=== PATIENT | male | born 1950 | race Caucasian/White ===

== ENCOUNTER → 2016-05-16 | Outpatient (CLI) | payer OTHER, MEDICARE | LOC: BHFA 15:00 | PROVIDERS: ATTEND Internal Medicine Cardiovascular Disease | DX: I48.91 Unspecified atrial fibrillation (principal); I25.10 Atherosclerotic heart disease of native coronary artery without angina pectoris ==

== ENCOUNTER 2017-04-09 13:33 | Emergency (ER) | payer OTHER, MEDICARE ==
[2017-04-09 14:02] VITALS: RESP 18; TEMP 98.2
--- NOTE | 2017-04-09 15:47 | EDPHY ---
H & P Time Seen by Provider: 04/09/17 15:46 HPI/ROS: Chief complaint. Toe infection HPI. 66-year-old male presents emergency department with toe infection. He has had a callus for several years on the right 3rd toe. 3 days ago he developed a blister. Today it was increased red and swollen with some purulent drainage. He had similar symptoms to this toe about 6 months ago after chemotherapy was treated by add trap puller got better. He changed chemotherapy recently then 3 days ago developed symptoms. He was seen at urgent care and referred to our emergency department. He had an care scheduled but they can't see him until Saturday. He is otherwise not on any antibiotics. His last chemotherapy was 2 weeks ago for metastatic prostate disease. No fever. Patient has decreased sensation to the toes on both feet ROS Constitutional. no fever/chills, no weakness Eyes. no problems with vision ENT. no sore throat, no nasal drainage Cardiovascular. no chest pain Respiratory. no shortness of breath, no cough Abdominal. no abdominal pain, no nausea/vomiting, no diarrhea . no problems urinating MS. no calf pain/swelling, no neck/back pain, no joint pain Skin. Swelling redness with a blister on the right third toe Lymph. no swollen glands Neuro. no headache, no dizziness, no difficulty walking or with speech Past Medical/Surgical History: Metastatic prostate cancer Social History: Single, nonsmoker, alcohol Smoking Status: Never smoked Physical Exam: General Appearance: Alert well-developed male mild distress. Vital signs stable Eyes:[ Pupils equal and round no pallor or injection]. ENT,[ Mouth: Mucous membranes are moist.] Respiratory: [There are no retractions, lungs are clear to auscultation.] Cardiovascular:[ Regular rate and rhythm.] Gastrointestinal: [ Abdomen is soft and nontender, no masses, bowel sounds normal.] Neurological: [Awake and alert, sensory and motor exams grossly normal.] Skin:[ Warm and dry, no rashes.] Musculoskeletal: [Neck is supple nontender.] Extremities right 3rd toe has a callus on the underside of the pad of the toe. On the dorsum there is a small blister with some purulent fluid. The toe is diffusely erythematous especially at the tip. No lymphangitis Psychiatric:[ Patient is oriented X 3, there is no agitation.] Constitutional: Initial Vital Signs Temperature (C) 36.8 C 04/09/17 13:59 Heart Rate 94 04/09/17 13:59 Respiratory Rate 18 04/09/17 13:59 Blood Pressure 146/108 H 04/09/17 13:59 O2 Sat (%) 94 04/09/17 13:59 O2 Delivery Mode Room Air Allergies/Adverse Reactions: ONIONS Allergy (Intermediate, Uncoded 04/09/17 13:57) NASAL CONGESTION PEPPERS Allergy (Intermediate, Uncoded 04/09/17 13:57) SINUS CONGESTION Home Medications: Medication Instructions Recorded Disopyramide Phosphate [Norpace] 100 mg PO TID 04/05/14 Herbals/Supplements -Info Only 1 ea PO DAILY 04/05/14 Losartan Potassium [Cozaar] 100 mg PO DAILY 04/05/14 Rosuvastatin Calcium [Crestor 40mg 40 mg PO DAILY 04/05/14 (*)] Tadalafil [Cialis] 2.5 mg PO DAILY 04/05/14 Acetaminophen [Tylenol ES 500 mg 1,000 mg PO Q6 PRN 04/07/14 (*)] Aspirin [Aspirin 325 mg (*)] 325 mg PO DAILY 04/07/14 Omeprazole [Prilosec 20 mg] 20 mg PO DAILY PRN 04/07/14 Amoxicillin/Clavulanate Pot 875 mg PO BID #14 tab 04/09/17 [Augmentin 875 MG TAB (*)] Lupron 04/09/17 Medical Decision Making - Diagnostics Imaging Results: Imaging Impressions Toe X-Ray 04/09/17 16:11 Impression: Soft tissue swelling over the distal tip of the third toe with an equivocal small linear marginal erosion of the distal tuft. (Osteomyelitis is not excluded). X-ray right 3rd toe reviewed by me shows no evidence for osteomyelitis Procedures: IV normal saline. IV vancomycin The blister is debrided and culture is obtained and sent for culture and sensitivity ED Course/Re-evaluation: Re-evaluation 5:30 p.m.--patient is stable. He is receiving the IV vancomycin. Patient and I discussed x-ray findings, treatment plan including criteria for return importance of follow-up and further evaluation. He expresses understanding and agreement Differential Diagnosis: This appears to be cellulitis. I am concerned about osteomyelitis however there is no radiologic evidence for this. No evidence for lymphangitis - Data Points Medications Given: Discontinued Medications Vancomycin/Sodium Chloride (Vancomycin 1 Gm (Premix)) 250 mls @ 250 mls/hr IV EDNOW ONE PRN Reason: Protocol Stop: 04/09/17 17:10 Last Admin: 04/09/17 17:00 Dose: 250 mls Departure - Departure Disposition: Home, Routine, Self-Care Clinical Impression: Cellulitis of toe of right foot Condition: Good Instructions: Cellulitis (ED) Additional Instructions: Elevate foot as much as possible. Augmentin as antibiotic beginning tomorrow. Return for worsening redness pain swelling. Recheck in 2-3 days if not improving Referrals: Dennis Mckeon, DO [Primary Care Provider] - 2-3 days, if not improved Prescriptions: Amoxicillin/Clavulanate Pot [Augmentin 875 MG TAB (*)] 875 mg PO BID #14 tab
[2017-04-09] MEDS ORDERED: VANCOMYCIN HCL/NORMAL SALINE 250 ML IV ONE (16:11)
[2017-04-09 19:37] VITALS: BP 150/110; PULSE 100; O2SAT 93
== END 2017-04-09 19:33 | disposition home or self-care (01) ==
DX: L03.031 Cellulitis of right toe (principal); Z79.82 Long term (current) use of aspirin; Z85.46 Personal history of malignant neoplasm of prostate
CPT/HCPCS: 73660; 96365; 99284; J3370

== ENCOUNTER → 2017-04-18 | Outpatient (CLI) | payer OTHER, MEDICARE ==
[~2017-04-18] MED LIST: GADOBUTROL 10 ML VIAL IVP ONE
== END ==
LOC: FIMAGING 14:25
PROVIDERS: ATTEND Podiatrist Primary Podiatric Medicine
DX: R60.0 Localized edema (principal); M25.871 Other specified joint disorders, right ankle and foot; L97.519 Non-pressure chronic ulcer of other part of right foot with unspecified severity; E11.621 Type 2 diabetes mellitus with foot ulcer
CPT/HCPCS: 73723; A9585

== ENCOUNTER 2018-10-10 23:17 | Emergency (ER) | payer OTHER, MEDICARE | END 2018-10-11 00:22 | disposition home or self-care (01) ==